=== PATIENT | female | born 1985 | race African-American/Black ===

== ENCOUNTER 2019-08-03 19:12 | Emergency (ER) | payer BC ==
--- OUTSIDE RECORDS SUMMARY | 2019-08-03 19:14 | XMS REPORT ---
:1985 [facility] Address [address] [place] [address] Dr. Hsieh [address] [place] [id number] Care Team Providers Name Role Phone Unavailable Unavailable Unavailable Problems This patient has no known problems. Allergies, Adverse Reactions, Alerts This patient has no known allergies or adverse reactions. Medications This patient has no known medications.
[2019-08-03] MEDS ORDERED: ACETAMINOPHEN 325 MG TABLET ONE (21:10)
[2019-08-03 22:22] LABS: Urine Blood TRACE (NEG); Urine Glucose NEGATIVE (NEG); Urine Protein NEGATIVE (NEG); Urine Specific Gravity 1.015 (1.005-1.030)
[2019-08-03 23:29] LABS: Absolute Lymphocytes (CBC) 2.5 K/uL (0.7-4.9); Basophils % 0.7 % (0-1.3); Hematocrit 37.4 % (36.0-45.0); Lymphocytes % 46.4 % (15.3-44.8); MPV 12.8 fL (7.6-11.3); RBC Red Blood Cell Count 4.05 M/uL (3.86-4.86)
[2019-08-03 23:43] LABS: Protime INR 1.05
[2019-08-03 23:48] LABS: ALT/SGPT 19 U/L (12-78); AST/SGOT 11 U/L (15-37); Albumin 4.2 g/dL (3.4-5.0); Alkaline Phosphatase 52 U/L (45-117); BUN Blood Urea Nitrogen 14 mg/dL (7-18); Bicarbonate 30 mmol/L (21-32); Bilirubin Direct 0.2 mg/dL (0-0.2); Bilirubin Total 0.8 mg/dL (0.2-1.0); Glucose Level 90 mg/dL (74-106); NT PRO-BNP 37 pg/mL (<125); Potassium 3.8 mmol/L (3.5-5.1); Protein, Total 7.2 g/dL (6.4-8.2); Sodium Level 141 mmol/L (136-145); Troponin (Emerg Dept Use Only) < 0.02 ng/mL (0.0-0.045)
--- NOTE | 2019-08-04 00:30 | ER ---
Nurse's Notes [facility] Name: Janette Zhang Age: 33 yrs Sex: Female : 1985 Arrival Date: 08/03/2019 Time: 19:13 Bed 26 Private MD: Diagnosis: Syncope and collapse;Chest pain, unspecified;Headache Presentation: 08/03 19:18 Presenting complaint: Patient states: Headache, chest pain, dizziness; "I'm just lp1 checking in because I passed out at work"; States getting a headache and passed out while at work sitting in chair 3 days ago, "They were painting while I was at work"; States "The smell of paint is still strong in the building". Transition of care: patient was not received from another setting of care. Onset of symptoms was August 03, 2019. Risk Assessment: Do you want to hurt yourself or someone else? Patient reports no desire to harm self or others. Initial Sepsis Screen: Does the patient meet any 2 criteria? No. Patient's initial sepsis screen is negative. Does the patient have a suspected source of infection? No. Patient's initial sepsis screen is negative. Care prior to arrival: None. 19:18 Method Of Arrival: Ambulatory lp1 19:18 Acuity: TREVOR 3 lp1 Triage Assessment: 19:26 General: Appears in no apparent distress. Behavior is calm, cooperative, appropriate lp1 for age. Neuro: Gait is steady, Reports headache frontal area. Respiratory: Respiratory effort is even, unlabored. 08/04 00:51 Headache History: Denies prior headaches. Pain: Also complains of. 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 - Social history:: Smoking status: Patient/guardian denies using tobacco. - Ebola Screening: : No symptoms or risks identified at this time. Screenin:26 Abuse screen: Denies threats or abuse. Denies injuries from another. Nutritional lp1 screening: No deficits noted. Tuberculosis screening: No symptoms or risk factors identified. 19:40 Fall Risk None identified. tr5 Assessment: 19:40 General: Appears in no apparent distress. Behavior is calm, cooperative, appropriate tr5 for age. Pain: Complains of pain in mid-sternal area Pain does not radiate. Pain currently is 6 out of 10 on a pain scale. Quality of pain is described as burning, sharp, Pain began 2-3 days ago. Is continuous. Neuro: Level of Consciousness is awake, alert, obeys commands, Oriented to person, place, time, [employer] are equal bilaterally Moves all extremities. Gait is steady. Neuro: Reports headache frontal area. Cardiovascular: Heart tones present Capillary refill < 3 seconds Pulses are all present. Edema is absent. Respiratory: Airway is patent Respiratory effort is even, unlabored, Respiratory pattern is regular, symmetrical. GI: No signs and/or symptoms were reported involving the gastrointestinal system. : No signs and/or symptoms were reported regarding the genitourinary system. EENT: No signs and/or symptoms were reported regarding the EENT system. Derm: Skin is intact, Skin is dry, Skin is normal, Skin temperature is warm. Musculoskeletal: Capillary refill < 3 seconds, Range of motion: intact in all extremities. 21:00 Reassessment: Patient appears in no apparent distress at this time. Patient and/or tr5 family updated on plan of care and expected duration. Pain level reassessed. Patient is alert, oriented x 3, equal unlabored respirations, skin warm/dry/pink. 22:00 Reassessment: No changes from previously documented assessment. Patient and/or family tr5 updated on plan of care and expected duration. Pain level reassessed. Patient is alert, oriented x 3, equal unlabored respirations, skin warm/dry/pink. Pt appears to be resting at bedside. Pt has family at bedside with her. 23:00 Reassessment: No changes from previously documented assessment. Patient and/or family tr5 updated on plan of care and expected duration. Pain level reassessed. Patient is alert, oriented x 3, equal unlabored respirations, skin warm/dry/pink. Patient states feeling better. Vital Signs: 19:22 BP 130 / 82; Pulse 69; Resp 16; Temp 98.4(A); Pulse Ox 100% ; Weight 63.5 kg; Height 5 lp1 ft. 3 in. (160.02 cm); Pain 3/10; 20:00 BP 132 / 71; Pulse 85; Resp 16; Pulse Ox 95% on R/A; tr5 21:00 BP 166 / 110; Pulse 71; Resp 17; Pulse Ox 96% on R/A; tr5 22:00 BP 133 / 83; Pulse 70; Resp 19; Pulse Ox 100% on R/A; tr5 23:00 BP 132 / 90; Pulse 63; Resp 16; Pulse Ox 100% on R/A; tr5 19:22 Body Mass Index 24.80 (63.50 kg, 160.02 cm) lp1 ED Course: 19:13 Patient arrived in ED. ag3 19:22 Triage completed. lp1 19:22 Arm band placed on right wrist. lp1 19:36 EKG done, by ED staff, reviewed by Alex Ramos MD. jp3 19:40 Placed in gown. Bed in low position. Call light in reach. Side rails up X 1. tr5 19:50 Inserted saline lock: 20 gauge in right antecubital area, using aseptic technique. tr5 20:20 Initial lab(s) drawn, by id, sent to lab. Urine collected: clean catch specimen, clear. tr5 20:21 Stephen Cruz, RN is Primary Nurse. tr5 20:22 Alex Aly PA is PHCP. cp 20:22 Alex Ramos MD is Attending Physician. cp 21:17 XRAY Chest (1 view) In Process Unspecified. EDMS 21:17 CT Head Brain wo Cont In Process Unspecified. EDMS 21:30 Awaiting lab results, Awaiting radiology results. tr5 22:14 Assisted to bathroom. tr5 22:41 Basic Metabolic Panel Sent. tr5 22:42 CBC with Diff Sent. tr5 22:42 LFT's Sent. tr5 08/04 00:50 No provider procedures requiring assistance completed. IV discontinued. tr5 Administered Medications: 08/03 21:30 Drug: Tylenol 650 mg Route: PO; tr5 22:12 Follow up: Response: No adverse reaction tr5 Outcome: 08/04 00:29 Discharge ordered by . cp 00:50 Discharged to home ambulatory. tr5 00:50 Condition: stable 00:50 Discharge instructions given to patient, Instructed on discharge instructions, follow up and referral plans. medication usage, Demonstrated understanding of instructions, follow-up care, medications, Prescriptions given X 2. 00:51 Patient left the ED. tr5 Signatures: Dispatcher [employer] EDEstrella Middleton, RN RN lp1 Alex Aly PA PA cp Pisarski, Jacob jp3 Micaela Banda Tommie, RN RN tr5
--- NOTE | 2019-08-04 00:31 | EDPHYS ---
Physician Documentation [facility] Name: Janette Zhang Age: 33 yrs Sex: Female : 1985 Arrival Date: 08/03/2019 Time: 19:13 Bed 26 Private MD: ED Physician Alex Ramos HPI: 08/03 20:45 This 33 yrs old Black Female presents to ER via Ambulatory with complaints of Headache, cp Chest Pain. 20:45 The patient complains of pain to the forehead. The patient describes the headache as cp aching, constant. Onset: The symptoms/episode began/occurred 3 day(s) ago. 20:48 The patient or guardian reports chest pain that is located primarily in the substernal cp area. 20:48 The pain does not radiate. cp 20:48 The chest pain is described as burning, sharp. cp 20:48 Patient reports syncopal episode at work 3 days ago while sitting at desk. Patient cp reports she awoke lying on floor with co-workers around. 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 - Social history:: Smoking status: Patient/guardian denies using tobacco. - Ebola Screening: : No symptoms or risks identified at this time. ROS: 20:50 Constitutional: Negative for body aches, chills, fever, poor PO intake. cp 20:50 Eyes: Negative for injury, pain, redness, and discharge. cp 20:50 ENT: Negative for drainage from ear(s), ear pain, sore throat, difficulty swallowing, difficulty handling secretions. 20:50 Cardiovascular: Positive for chest pain, Negative for edema, palpitations. 20:50 Respiratory: Negative for cough, shortness of breath, wheezing. 20:50 Abdomen/GI: Negative for abdominal pain, nausea, vomiting, and diarrhea, constipation, black/tarry stool, rectal bleeding. 20:50 Back: Negative for pain at rest, pain with movement. 20:50 : Negative for urinary symptoms. 20:50 Skin: Negative for erythema, rash. 20:50 Neuro: Positive for dizziness, headache, syncope, Negative for altered mental status, gait disturbance, speech changes, visual changes, weakness. 20:50 All other systems are negative. Exam: 19:40 ECG was reviewed by the Attending Physician. cp 21:00 Constitutional: The patient appears in no acute distress, alert, awake, cp non-diaphoretic, non-toxic, well developed, well nourished. 21:00 Eyes: Pupils equal round and reactive to light, extra-ocular motions intact. Lids and cp lashes normal. Conjunctiva and sclera are non-icteric and not injected. Cornea within normal limits. Periorbital areas with no swelling, redness, or edema. ENT: Nares patent. No nasal discharge, no septal abnormalities noted. Tympanic membranes are normal and external auditory canals are clear. Oropharynx with no redness, swelling, or masses, exudates, or evidence of obstruction, uvula midline. Mucous membranes moist. Neck: Trachea midline, no thyromegaly or masses palpated, and no cervical lymphadenopathy. Supple, full range of motion without nuchal rigidity, or vertebral point tenderness. No Meningismus. Chest/axilla: Normal chest wall appearance and motion. Nontender with no deformity. No lesions are appreciated. 21:00 Head/face: Noted is tenderness, that is mild, of the forehead. 21:00 Cardiovascular: Rate: normal, Rhythm: regular, Edema: is not appreciated, JVD: is not appreciated. 21:00 Respiratory: the patient does not display signs of respiratory distress, Respirations: normal, no use of accessory muscles, no retractions, no splinting, no tachypnea, labored breathing, is not present, Breath sounds: are clear throughout, no decreased breath sounds, no stridor, no wheezing. 21:00 Abdomen/GI: Inspection: abdomen appears normal, Bowel sounds: active, all quadrants, Palpation: abdomen is soft and non-tender, in all quadrants. 21:00 Back: pain, is absent, ROM is normal. 21:00 Skin: cellulitis, is not appreciated, no rash present. 21:00 Neuro: Orientation: to person, place \T\ time. Mentation: is normal, Cerebellar function: is grossly normal, Motor: moves all fours, strength is normal, Sensation: is normal. Vital Signs: 19:22 BP 130 / 82; Pulse 69; Resp 16; Temp 98.4(A); Pulse Ox 100% ; Weight 63.5 kg; Height 5 lp1 ft. 3 in. (160.02 cm); Pain 3/10; 20:00 BP 132 / 71; Pulse 85; Resp 16; Pulse Ox 95% on R/A; tr5 21:00 BP 166 / 110; Pulse 71; Resp 17; Pulse Ox 96% on R/A; tr5 22:00 BP 133 / 83; Pulse 70; Resp 19; Pulse Ox 100% on R/A; tr5 23:00 BP 132 / 90; Pulse 63; Resp 16; Pulse Ox 100% on R/A; tr5 19:22 Body Mass Index 24.80 (63.50 kg, 160.02 cm) lp1 MDM: 20:22 Patient medically screened. cp 08/04 00:28 Data reviewed: vital signs, nurses notes, lab test result(s), EKG, radiologic studies, cp CT scan, plain films, I have discussed the patient's presentation/case with the attending Emergency Department Physician; and as a result, I will discharge patient. 00:28 Test interpretation: by ED physician or midlevel provider: ECG, chest xray negative for cp infiltrates. Counseling: I had a detailed discussion with the patient and/or guardian regarding: the historical points, exam findings, and any diagnostic results supporting the discharge/admit diagnosis, radiology results, the need for outpatient follow up, a supervisor [employer]er [employer], to return to the emergency department if symptoms worsen or persist or if there are any questions or concerns that arise at home. ED course: VSS. Patient denies family history of early cardiac . 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 Will discharge to home for continued monitoring and can f/u outpatient with DR Bass. 08/03 20:51 Order name: Basic Metabolic Panel cp 08/03 20:51 Order name: CBC with Diff cp 08/03 20:51 Order name: LFT's cp 08/03 20:51 Order name: Magnesium; Complete Time: 23:53 cp 08/03 20:51 Order name: NT PRO-BNP; Complete Time: 23:53 cp 08/03 20:51 Order name: PT-INR; Complete Time: 23:53 cp 08/03 20:51 Order name: Troponin (emerg Dept Use Only); Complete Time: 23:53 08/03 20:52 Order name: Basic Metabolic Panel; Complete Time: 23:53 EDKY 08/03 20:52 Order name: CBC with Automated Diff; Complete Time: 23:33 EDKY 08/03 23:33 Interpretation: Normal except: PLT 108; MPV 12.8; LYM% 46.4; EOSINOPHIL % 4.9. 08/03 20:52 Order name: Liver (Hepatic) Function; Complete Time: 23:53 EDMS 08/03 23:53 Interpretation: Normal except: AST 11. cp 08/03 21:46 Order name: D-Dimer; Complete Time: 23:53 EDKY 08/03 23:54 Interpretation: Reviewed. 08/03 22:15 Order name: Urine Dipstick--Ancillary (enter results); Complete Time: 23:33 mw 08/03 22:15 Order name: Urine --Ancillary (enter results); Complete Time: 23:33 [facility] 08/03 20:44 Order name: Orthostatics; Complete Time: 20:57 08/03 20:44 Order name: EKG; Complete Time: 20:44 08/03 20:44 Order name: EKG - Nurse/Tech; Complete Time: 20:50 cp 08/03 20:51 Order name: XRAY Chest (1 view) 08/03 20:51 Order name: Cardiac monitoring; Complete Time: 20:52 08/03 20:51 Order name: IV Saline Lock; Complete Time: 20:52 08/03 20:51 Order name: Labs collected and sent; Complete Time: 20:52 08/03 20:51 Order name: O2 Per Protocol; Complete Time: 21:31 cp 08/03 20:51 Order name: O2 Sat Monitoring; Complete Time: 20:52 cp 08/03 20:51 Order name: CT Head Brain wo Cont 08/03 20:51 Order name: Urine Dipstick-Ancillary (obtain specimen); Complete Time: 22:23 08/03 20:51 Order name: Urine Test (obtain specimen); Complete Time: 22:23 cp EC/13 19:40 Rate is 64 beats/min. Rhythm is regular. MS interval is normal. QRS interval is normal. cp QT interval is normal. Interpreted by me. Reviewed by me. Administered Medications: 21:30 Drug: Tylenol 650 mg Route: PO; tr5 22:12 Follow up: Response: No adverse reaction tr5 Disposition: 08/04/19 00:29 Discharged to Home. Impression: Syncope and collapse, Chest pain, unspecified, Headache. - Condition is Stable. - Discharge Instructions: Nonspecific Chest Pain, General Headache Without Cause, Syncope, Aspirin and Your Heart, Form - Excuse from Work, School, or Physical Activity. - Prescriptions for Fiorinal 50- 325-40 mg Oral Capsule - take 1 capsule by ORAL route every 4 hours As needed - not to exceed 6 capsules per day; 20 capsule. Ibuprofen 800 mg Oral Tablet - take 1 tablet by ORAL route every 8 hours As needed take with food; 30 tablet. - Medication Reconciliation Form, Thank You Letter, Antibiotic Education, Prescription Opioid Use, Work release form form. - Follow up: Private Physician; When: primary supervisor [employer], DR Bass, next 2-3 days; Reason: Recheck today's complaints. - Problem is new. - Symptoms have improved. Addendum: 08/06/2019 08:36 Co-signature as Attending Physician, Alex Ramos MD I agree with the assessment and c dee plan of care. Signatures: Dispatcher [employer] [facility] Alex Ramos MD MD cha Pena, Laura, RN RN lp1 Alex Aly PA PA cp Rodriguez, Tommie, RN RN tr5 Corrections: (The following items were deleted from the chart) 08/03 21:46 21:41 D-DIMER+COAG.LAB.BRZ ordered. [facility] 08/04 00:51 00:29 08/04/2019 00:29 Discharged to Home. Impression: Syncope and collapse; Chest tr5 pain, unspecified; Headache. Condition is Stable. Forms are Medication Reconciliation Form, Thank You Letter, Antibiotic Education, Prescription Opioid Use. 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 Problem is new. Symptoms have improved. cp
[2019-08-04 01:45] VITALS: TEMP 98.4
[2019-08-04 01:50] VITALS: O2SAT 100
[2019-08-04 01:51] VITALS: BP 132/90
--- NOTE | 2019-08-04 08:54 | RAD REPORT ---
EXAM DESCRIPTION: Melisa Single View08/03/2019 9:18 pm CLINICAL HISTORY: Chest pain COMPARISON: none FINDINGS: The lungs appear clear of acute infiltrate. The heart is normal size IMPRESSION: No acute abnormalities displayed
--- NOTE | 2019-08-05 18:27 | EKG ---
Test Date: 2019-08-03 Test Time: 19:31:49 Guest Service Agent: ABDON MEASUREMENT RESULTS: Intervals: Rate: 64 WA: 194 QRSD: 84 QT: 388 QTc: 400 [place]: P: 77 WA: 194 QRS: 69 T: 65 INTERPRETIVE STATEMENTS: Normal sinus rhythm Normal ECG No previous ECG available for comparison Electronically Signed On 08-05-19 18:23:17 CDT by Rodolfo Desai
--- NOTE | 2019-08-06 10:38 | RAD REPORT ---
EXAM DESCRIPTION: CT - Head Brain Wo Cont - 08/04/2019 1:47 am CLINICAL HISTORY: Headache;Syncope. COMPARISON: None. TECHNIQUE: CT scan of the brain without IV contrast. This exam was performed according to our depa rtmental dose-optimization program, which includes automated exposure control, adjustment of the mA a nd/or kV according to patient size and/or use of iterative reconstruction technique. FINDINGS: The ventricles, cisterns, and sulci are age-appropriate. No evidence of acute infarction, intracranial hemorrhage, extra-axial fluid collection, or midline shift. No air-fluid levels are seen in the paranasal sinuses to suggest acute sinusitis. No depressed skull fracture. IMPRESSION: No acute intracranial findings. Electronically signed by: Cj Berkowitz MD 08/03/2019 9:35 PM CDT Due to temporary technical issues with the PACS/Fluency reporting system, reports are being signed by the in house radiologist as a courtesy to ensure prompt reporting. The interpreting radiologist is f ully responsible for the content of the report.
== END 2019-08-04 00:51 | disposition home or self-care (01) ==
LOC: ER 19:12
DX: R07.9 Chest pain, unspecified (principal); R55 Syncope and collapse; I34.1 Nonrheumatic mitral (valve) prolapse
CPT/HCPCS: 36415; 70450; 71045; 80048; 80076; 81003; 81025; 83735; 83880; 84484; 85025; 85379; 85610; 93005; 99284